=== PATIENT | male | born 1935 | race Caucasian/White ===

== ENCOUNTER → 2025-04-08 13:57 | Outpatient (REF) | payer OTHER, SELFPAY | LOC: HWRCS 13:57 | PROVIDERS: ATTENDING PHYSICIAN Family Medicine | DX: I48.91 Unspecified atrial fibrillation (principal); I50.9 Heart failure, unspecified | CPT/HCPCS: 93306 ==

== ENCOUNTER → 2025-05-29 11:28 | Outpatient (REF) | payer OTHER, SELFPAY | LOC: RAD 11:28 | PROVIDERS: ATTENDING PHYSICIAN Family Medicine | DX: I34.0 Nonrheumatic mitral (valve) insufficiency (principal); I50.812 Chronic right heart failure | CPT/HCPCS: 71046 ==

== ENCOUNTER 2025-06-25 07:42 | Day surgery (SDC) | payer OTHER, SELFPAY ==
--- NOTE | 2025-06-25 09:34 | ITS.CL.CARDI ---
Research Quality Assurance Analyst - Cardioversion
Cardioversion
Procedure Report:
Procedure: DC cardioversion for persistent atrial fibrillation in the setting of HFpEF
Patient interviewed and examined. Consent obtained. Timeout performed.
Anesthetic agent: Propofol
Cardioversion technique: Synchronized 200 J biphasic shock with patches in the AP position
Results: Zoroastrian of sinus rhythm with recurrence of atrial fibrillation within 1 to 2 minutes
At that point, decision was made not to attempt cardioversion again for likely futility.
Complications: None
Conclusion:
Unsuccessful cardioversion for persistent atrial fibrillation.
Plan:
Start amiodarone 200 mg daily
Decrease metoprolol ER from 50 mg daily to 25 mg daily
Stop simvastatin given amiodarone interaction
Start atorvastatin 10 mg a day
EKG in office in 2 weeks
Follow-up to Dr. Edwards August 06
== END 2025-06-25 10:30 | disposition home or self-care (01) ==
LOC: CATH 07:42
PROVIDERS: ATTENDING PHYSICIAN Nuclear Medicine Nuclear Cardiology; FAMILY PHYSICIAN Family Medicine
DX: I48.19 Other persistent atrial fibrillation (principal); Z79.899 Other long term (current) drug therapy; I45.10 Unspecified right bundle-branch block; Z79.01 Long term (current) use of anticoagulants
CPT/HCPCS: 92960; 93005

== ENCOUNTER 2025-07-14 10:05 | Day surgery (SDC) | payer OTHER, SELFPAY ==
--- NOTE | 2025-07-14 11:02 | ITS.CL.CARDI ---
Weaving Instructor - Cardioversion
Cardioversion
Procedure Report:
Procedure: Direct current electrical cardioversion
Pre-operative diagnosis: Persistent atrial fibrillation
Post-operative diagnosis: Persistent atrial fibrillation status post DC cardioversion to sinus rhythm
Anesthesia: MAC
Attending Physician: Buster Wiley MD
Procedure Description: The patient was brought to the electrophysiology laboratory in the fasting state. Adherence to anticoagulation regimen was confirmed. Informed consent was obtained from the patient prior to the start of the procedure.
Electrodes were placed on the patient and connected to an external defibrillator. Monitoring of blood pressure, ECG tracings, and pulse oximetry was initiated. The pads were applied to the patient in the anterior and posterior positions. The patient
was sedated by the anesthesiologist. A 200 joule biphasic synchronized shock was delivered to the patient under MAC anesthesia. Sinus rhythm was successfully restored. The patient recovered uneventfully from MAC anesthesia. There were no immediate
post-procedure complications. The patient left the lab in good condition. The attending physician was present throughout the entire procedure.
Impression: Successful direct current cardioversion with confucianist of sinus rhythm after one 200 joule biphasic synchronized shock.
[2025-07-14 11:19] VITALS: BMI 26.6
== END 2025-07-14 11:43 | disposition home or self-care (01) ==
LOC: CATH 10:05
PROVIDERS: ATTENDING PHYSICIAN Internal Medicine Cardiovascular Disease; FAMILY PHYSICIAN Family Medicine; OTHER PHYSICIAN Nuclear Medicine Nuclear Cardiology
DX: I48.19 Other persistent atrial fibrillation (principal); I44.0 Atrioventricular block, first degree; I49.1 Atrial premature depolarization; R00.1 Bradycardia, unspecified; I45.10 Unspecified right bundle-branch block; I11.0 Hypertensive heart disease with heart failure; I50.32 Chronic diastolic (congestive) heart failure
CPT/HCPCS: 92960; 93005